=== PATIENT | female | born 1935 | race Caucasian/White ===

== ENCOUNTER 2016-10-04 03:57 | Inpatient (IN) | payer MEDICARE, OTHER ==
--- NOTE | ~2016-10-04 | HP ---
History And Physical [facility] [id number] [place]. [address] NAME: MOISÉS BROWN : 35 STATUS : ADM IN PAT#: [id number] AGE: 80 ADM/REG DATE : 10/04/16 MR#: [id number] REPORT SERV DATE: 10/04/16 DICTATED BY: BLAINE WILSON DATE: 10/04/16 REPORT STATUS : Draft TRANSCRIBED BY: MODL DATE: 10/04/16 DATE OF ADMISSION: 10/04/2016 REASON FOR ADMISSION: Acute hypoxemic respiratory failure, status post V-tach arrest in the emergency department. HPI: Mrs. Brown is an 80-year-old lady with underlying diabetes, COPD, hypertension, and atrial fibrillation who presented to the emergency department via air transport. She was already on pacer and dopamine infusion per EMS upon her arrival. [facility] had actually intubated her prior to arrival, and on arrival to our facility at around 0251 hours this morning, she coded a short time later (see detailed code record). She initially arrested at 0257 hours. ACLS was initiated. She received CPR, epinephrine x2 amps, and bicarbonate, and ultimately weak femoral pulse was palpated at 0303 hours. At 0304 hours, she developed ventricular tachycardia and was defibrillated with 200 joules and loaded with amiodarone. She underwent two subsequent defibrillations at 300 and 360 joules and ultimately return of spontaneous circulation was obtained at 0308 hours. She also received an amp of lidocaine. She was found to be quite hyperglycemic with glucose of greater than 700, and she received a total of 16 units of regular insulin, an amp of calcium gluconate, and 2 amps of bicarbonate. She was started on insulin infusion as well as the vasopressors as described above. A central line was inserted into the left subclavian vein by Dr. Gonzales and Armenta catheter was inserted. She has received 1 L total of fluid during her first couple of hours in the emergency department, and we are now in the process of moving her to the intensive care unit for ongoing care. Additional history is very limited as her family is still making their way to the hospital. PAST MEDICAL HISTORY: Largely taken from extrapolation from her home medication list includes COPD requiring chronic prednisone at 10 mg daily, GERD requiring PPI, congestive heart failure, hypertension, dyslipidemia, iron deficiency, diabetes requiring insulin, hypothyroidism requiring Synthroid, seasonal allergies requiring Singulair, and presumed atrial fibrillation. She is on both digoxin and diltiazem. SURGICAL HISTORY: Unknown. SOCIAL HISTORY: Unknown. FAMILY HISTORY: Unknown. ALLERGIES: UNKNOWN. MEDICATIONS: Albuterol, allopurinol, aspirin, calcium, digoxin, diltiazem ER, iron supplements, Advair, Lasix, Amaryl, hydralazine, hydrocodone p.r.n., Humalog 75/25, Synthroid, lisinopril, metformin, montelukast, fish oil, Protonix, potassium supplements, prednisone chronically, and Phenergan. Please see the detailed MAR prepared by the pharmacist in the emergency department for additional information on doses and frequencies of administration. History And Physical [address] [address] NAME: MOISÉS BROWN : 35 STATUS : ADM IN PAT#: [id number] AGE: 80 ADM/REG DATE : 10/04/16 MR#: [id number] REPORT SERV DATE: 10/04/16 DICTATED BY: BLAINE WILSON DATE: 10/04/16 REPORT STATUS : Draft TRANSCRIBED BY: NINOSKA DATE: 10/04/16 ADVANCE DIRECTIVES: Living will unknown. She is full code at this point. PHYSICAL EXAMINATION: GENERAL: The patient is a female, who is elderly and somewhat obese. She is intubated and sedated. HEENT: Head is atraumatic and normocephalic. Pupils are very sluggishly reactive to light. Extraocular movements are unable to be assessed due to sedation. Ears, nose, and mouth are unremarkable. She has dry oral mucosa, and an oral endotracheal tube and orogastric tube in place. NECK: She has redundant soft tissue about the neck. No palpable adenopathy. CHEST: With symmetric rise. She has a subclavian triple-lumen which is sutured in by the clip on the left. She has diminished lung sounds at bilateral bases. HEART: S1, S2. Irregular regular. ABDOMEN: Obese, soft, nontender with some protuberance and mild tympany to percussion. : A Armenta catheter is indwelling and draining minimal amount of translucent yellow urine. EXTREMITIES: Without clubbing or cyanosis. She is cool to touch. She has mild pitting edema. LYMPHATIC: Exam is unremarkable. Otherwise, she has no palpable adenopathy. NEUROLOGIC: Limited. She does withdraw to pain. PSYCHIATRIC: Exam unable to perform. LABORATORY STUDIES: Personal review of diagnostic workup completed in emergency department this evening. Metabolic profile shows hyponatremia, hypochloremia of 130 and 91 with hyperkalemia at 7.7 initially, bicarb was 19 on BMP with the BUN and creatinine being 34 and 2.57 with an unclear baseline. She is markedly hyperglycemic at 881. Magnesium is 2 and troponin is 0.03. She has leukocytosis at 26.3, hemoglobin is 10.1, hematocrit is 33.2 with normochromic normocytic red cell parameters. Her RDW is 14.5, platelet count is adequate at 240. She has 5% bands and a lymphocyte predominant differential. INR is 1.1. Followup potassium is 6.4 after treatment with bicarb and 1 L of fluid. An ABG shows pH of 7.147, CO2 of 68, O2 of less than 60(this is a venous sample), and base excess -6.0 with a calculated bicarb of 22.8 and an oxygen saturation of 77.0. Again, this is a venous sample. Urinalysis shows glucosuria with mild proteinuria, negative leukocyte esterase, negative nitrite, 2 white blood cells, and 43 hyaline casts. Urine drug screen is positive for opiates alone. Lactate level is 11.6. A followup ABG shows mild improvement in the acidosis, pH 7.21, CO2 is 51, O2 is 474, calculated bicarb at 19.7 on 100% FiO2. Chest x- ray shows subclavian line with tip terminating at the insertion of the subclavian vein on the left to the superior vena cava. Endotracheal tube is low lying about 1 cm above the concepción. She has bilateral hyperinflated lung wang with no focal consolidations or pleural effusions. There is no pneumothorax on my assessment. Several cardiac leads traversing the anterior chest. A KUB is pending. An EKG shows wide-complex ventricular tachycardia. IMPRESSION: 1. Acute hypoxemic respiratory failure. 2. Ventricular tachycardia cardiac arrest, status post successful defibrillation and ACLS with down time from 0257 to 0307 according to ER records. 3. Metabolic acidosis. History And Physical [address] [place]. [address] NAME: MOISÉS BROWN : 35 STATUS : ADM IN PAT#: [id number] AGE: 80 ADM/REG DATE : 10/04/16 MR#: [id number] REPORT SERV DATE: 10/04/16 DICTATED BY: BLAINE WILSON DATE: 10/04/16 REPORT STATUS : Draft TRANSCRIBED BY: MODL DATE: 10/04/16 4. Insulin-dependent diabetes with evidence of diabetic ketoacidosis versus hyperosmolar hyperglycemic syndrome. 5. Marked hyperkalemia likely leading to the ventricular arrhythmia noted above. 6. Marked leukocytosis with mild bandemia and neutrophil predominant differential. 7. Acute kidney injury likely superimposed on some degree of chronic kidney disease. 8. Normochromic normocytic anemia. 9. History of chronic obstructive pulmonary disease, requiring chronic prednisone. 10.Acute kidney injury, likely acute tubular necrosis (43 hyaline casts on UA). 11.Lactic acidosis and respiratory acidosis. 12.Past medical history including chronic obstructive pulmonary disease, gastroesophageal reflux disease, chronic atrial fibrillation, iron deficiency, diabetes requiring insulin, hypertension, seasonal allergies. PLAN: We will move Ms. Brown up to the Intensive Care Unit for ongoing management. She is already on mechanical ventilation which is being titrated on an as-needed basis. We will continue to try to titrate vasopressors and ask Cardiology to weigh in on additional management in light of her advanced age. ER MD did defer cooling protocol. We did discuss the case informally by telephone with Dr. Duque from Nephrology who was in concurrence with ongoing administration of volume and monitoring urine output with serial labs and consideration of dialysis on an as-needed basis. We will cover her with broad-spectrum antibiotics, obtain full set of cultures, and a procalcitonin level. With the goal of deescalation of antibiotic regimen fairly quickly once more data is available and her clinical picture is more clear, we will screen for iron deficiency in light of her chronic anemia and check a digoxin level as she does not appear to have renal clearance and this maybe contributing to her presentation tonight. She is already loaded with amiodarone. We will continue the insulin drip and titrate as appropriate. SCDs for DVT prophylaxis. Protonix for stress ulcer prophylaxis. She is full code. Daughter was updated at bedside, and I did discuss the case with both Dr. Gonzales and Dr. Duque from Nephrology. We will continue to make adjustments to her regimen as clinically warranted. Approximately 74 minutes of critical care time were spent at the bedside assessing and stabilizing Ms. Brown this evening as well as reviewing her medical record and updating her family. Please see handwritten progress notes for additional details. KINSEY/NINOSKA Blaine Wilson MD / [id number] CC: MD ROCIO Palomino
--- NOTE | ~2016-10-04 | PREOPHP ---
PreOp History and Physical [facility] [address] [place]. [address] NAME: MOISÉS BROWN : 35 STATUS : ADM IN PAT#: [id number] AGE: 80 ADM/REG DATE : 10/04/16 MR#: [id number] REPORT SERV DATE: 10/04/16 DICTATED BY: SARKIS RAMIREZ DATE: 10/04/16 REPORT STATUS : Draft TRANSCRIBED BY: NINOSKA DATE: 10/04/16 TIME: 10:50 a.m. REASON FOR CONSULTATION: Acute kidney injury with severe hyperkalemia in the setting of DKA with profound hyperglycemia, status post cardiac arrest and respiratory failure, and currently intubated. ASSESSMENT: Acute profound hyperkalemia. Initial potassium of 7.7 in the setting of diabetic ketoacidosis and profound hyperglycemia with acute kidney injury in the setting of a creatinine initially 2.5, now down to 2.3 with nonoliguric injury, with almost 2000 mL of urine output. She likely has a component of ATN in the setting of cardiac arrest. She required CPR and ACLS protocol, but currently is nonoliguric. PLAN: 1. Serial labs. Continue the insulin drip indefinitely until the potassium is corrected. 2. Switch to normal saline and maintain hydration and allow for this potassium loss. 3. Obtain old records to see if there is any history of previous chronic kidney disease. At the present time, there is no immediate indication for dialysis at this time. HISTORY OF PRESENT ILLNESS: History is obtained from the records available. The patient is currently intubated. She is an 80-year-old female with a history of diabetes and COPD, with hypertension and chronic atrial fibrillation, who was brought in by [facility] from an outside facility. Apparently, she had arrested at about 2:57 a.m. this morning. On airway, she received CPR, epinephrine, bicarbonate and then subsequently, had a ventricular tachycardia arrest and was defibrillated and then, noted to be profoundly hyperglycemic with severe metabolic acidosis with the profound hyperkalemia as noted. She is currently sedated and intubated. PAST MEDICAL HISTORY: Obtained from records available includes COPD; gastroesophageal reflux disease; CHF; hypertension; dyslipidemia; iron-deficiency anemia; diabetes, requiring insulin; hypothyroidism and atrial fibrillation. SURGICAL HISTORY: None known. SOCIAL HISTORY: We talked to the daughter. No history of smoking and no history of alcohol or medication or street drug usage. FAMILY HISTORY: Negative for end-stage renal failure in the parents. ALLERGIES: NO KNOWN ALLERGIES AT THIS TIME DOCUMENTED. MEDICATIONS: Albuterol, allopurinol, Advair, Lasix, Amaryl, hydralazine, hydrocodone, Humalog, Synthroid, lisinopril, metformin, fish oil, Protonix, prednisone, and Phenergan. REVIEW OF SYSTEMS: As per the HPI. PreOp History and Physical [address] [address] NAME: MOISÉS BROWN : 35 STATUS : ADM IN [facility]#: [id number] AGE: 80 ADM/REG DATE : 10/04/16 MR#: [id number] REPORT SERV DATE: 10/04/16 DICTATED BY: SARKIS RAMIREZ DATE: 10/04/16 REPORT STATUS : Draft TRANSCRIBED BY: NINOSKA DATE: 10/04/16 PHYSICAL EXAMINATION: GENERAL: She is sedated and intubated. She is off dopamine. VITAL SIGNS: Systolic blood pressures in the 90s and sinus tach. HEENT: Pupils are reacting to light. She is pale, but not jaundiced. Oral mucosa is dry. She has an ET tube. LUNGS: Air entry is equal bilaterally. CHEST: Clear to percussion and auscultation. [place] beats not displaced. S1, S2. No rub. ABDOMEN: Distended. It is firm. It is soft. There are no bowel sounds at this time, but there is no guarding or rebound. There is no hepatosplenomegaly described and no renal angle tenderness. : She has an indwelling Armenta catheter with clear yellow urine. There is no hematuria. EXTREMITIES: She has no peripheral edema. SKIN: There is no loss of skin turgor. No rash. MUSCULOSKELETAL: Muscle bulk and tone appropriate for age. There is no acute arthritic findings noted. LABORATORY DATA: Sodium 132, potassium 6.2, chloride 94, CO2 of 25, BUN 32, creatinine 2.38, calcium is 8.3, albumin is 3.1. Alkaline phos is 162, ALT is 340, AST is 541. Her ferritin was 1281. Her TSH is 2.7. Digoxin level was 2.9. Hemoglobin is 11.4, hematocrit 34.4, white count is 34.1, platelet count is 311,000. Her urinalysis done here today shows proteinuria suggestive of chronic kidney disease and glycosuria. There was no pyuria or hematuria. Her chest x-ray shows mild colonic ileus. NG tube in good position. Her chest x-ray shows left subclavian central line. Otherwise, no evidence of any increased pulmonary vascular congestion. MG/MODL Sarkis Ramirez M.D. / [id number] CC: MD Marlen Palomino Vickie
--- NOTE | ~2016-10-04 | TEE ---
Transesophageal Echocardiogram [facility] [address] [place]. [address] NAME: MOISÉS BROWN : 35 STATUS : ADM IN PAT#: [id number] AGE: 80 ADM/REG DATE : 10/04/16 MR#: [id number] REPORT SERV DATE: 10/08/16 DICTATED BY: JOSE FRAUSTO DATE: 10/08/16 REPORT STATUS : Draft TRANSCRIBED BY: MODL DATE: 10/08/16 INDICATION: Abnormal echo. PROCEDURE: After questions were answered and consents were signed, the patient was sedated with propofol per Anesthesia. The probe was placed in the midesophagus and images were obtained without difficulty. At the conclusion of the procedure, the probe was withdrawn and the patient is recovering in the short-stay unit. 2D INTERPRETATION: The left ventricular function is normal with no focal wall motion abnormality. Left atrium is enlarged. No thrombus is noted in the left atrium nor the left atrial appendage. The mitral valve leaflets are mildly thickened. There is a large approximately 2.5 cm rounded density with calcification noted in the posterior annulus and appears to be adjacent to P2 and probable P1 segments. It is sessile without independent motion and has a morphology consistent with caseous calcification of the mitral annulus or CCMA. The interatrial septum is intact. The aortic valve was trileaflet mildly sclerotic and opens adequately. The right atrium is normal. Tricuspid valve grossly normal. Right ventricle grossly normal. COLOR FLOW: Mild mitral regurgitation with mild to moderate tricuspid regurgitation and no significant aortic insufficiency. DOPPLER: Doppler flow velocities through the mitral valve are increased with a mean gradient of 10 mmHg and a peak gradient of 16 mmHg. CONCLUSION: ABNORMAL ECHOCARDIOGRAM WITH MITRAL ANNULAR MASS CONSISTENT WITH CASEOUS CALCIFICATION OF THE MITRAL ANNULUS, WHICH IS A VARIANT OF MITRAL ANNULAR CALCIFICATION. MODERATE SEVERE ASSOCIATED MITRAL STENOSIS IS NOTED. THIS IS NOT CONSISTENT WITH VEGETATION. WO/MODL Jose Frausto M.D., Ph.D, F.A.C.C. / [id number] CC: ADEOLA SOSA Vickie
--- NOTE | ~2016-10-04 | DS ---
Discharge Summary [facility] [address] [place]. [address] NAME: MOISÉS BROWN : 35 STATUS : DIS IN PAT#: [id number] AGE: 80 ADM/REG DATE : 10/04/16 MR#: [id number] REPORT SERV DATE: 10/11/16 DICTATED BY: DATE: REPORT STATUS : Draft TRANSCRIBED BY: MODL DATE: 10/10/16 ADMISSION DATE: 10/04/2016 DISCHARGE DATE: 10/10/2016 The patient was admitted to the [facility], attending Dr. Loretta Orozco, and discharged from the Hospitalist Service, attending Dr. Girma Barton. CONSULTANTS: Included [facility]-Dr. Ochoa, Nephrology-Dr. Ramirez, Electrophysiology-Dr. Oquendo, and the inpatient asthma educator. DISCHARGE DIAGNOSES: 1. Status post CPR. Status post intubation. Acute hypoxemic respiratory failure in the context of ventricular tachycardia cardiac arrest. 2. Ventricular tachycardia felt secondary to hyperkalemia. 3. Acute kidney injury-multifactorial due to hyperosmolar nonketotic hyperglycemic state and dehydration as well as acute tubular necrosis. 4. Hyperkalemia due to acute kidney injury and supplementation-resolved. 5. Digoxin toxicity-resolved. 6. Atrial fibrillation, paroxysmal, with rapid ventricular response this admission. Cardizem up titrated, restarted on lower dose of digoxin and started on Coumadin for stroke prophylaxis. 7. 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 8. Labile insulin-dependent diabetes mellitus type 2-hemoglobin A1c 10.3 with hypoglycemia on basal insulin. 9. Hypertension. 10.Transaminitis-due to hypotension, resolved. 11.History of hypothyroidism-normal thyroid function tests. 12.History of anemia on oral iron therapy. 13.Right upper extremity cephalic vein thrombosis (superficial). 14.COPD-chronic and stable, without acute exacerbation this admission. 15.Spiculated lung mass, 1.3 cm in the right lung apex with recommendation for repeat CT chest in three months. 16.Generalized weakness-for additional physical rehabilitation. 17.Demand-related cardiac ischemia. IMAGIN. Portable chest x-ray, October 04. CPR in progress. Endotracheal tube above the concepción. Mild central venous congestion. 2. Portable chest x-ray, October 04 status post cardiac arrest. Left subclavian central line in good position with no pneumothorax. 3. KUB, October 04 status post NG tube placement shows good positioning, mild colonic ileus. 4. Transthoracic echocardiogram, October 04 showing normal left ventricular size and systolic function. Estimated ejection fraction 55%. No regional wall motion abnormalities. Mild diastolic dysfunction. Thickening of mitral valve leaflets with large 2.4 cm heterogeneous circular mass seems to be attached to the posterior mitral Discharge Summary [address] [place]. [address] NAME: MOISÉS BROWN : 35 STATUS : DIS IN PAT#: [id number] AGE: 80 ADM/REG DATE : 10/04/16 MR#: [id number] REPORT SERV DATE: 10/11/16 DICTATED BY: DATE: REPORT STATUS : Draft TRANSCRIBED BY: MODL DATE: 10/10/16 valve leaflet. Small mobile echodensity attached to the mass. Findings resembling cardiac tumor, possible myxoma, thrombus or mitral annular calcification cannot be excluded. Moderate obstruction to flow with evidence of moderate mitral valve stenosis. Aortic valve sclerosis. 5. Portable chest x-ray, October 05 shows pulmonary venous congestion. 6. Portable chest x-ray October 06 shows mild volume overload or CHF pattern superimposed on patchy bilateral upper lobe with airspace disease. 7. Portable chest x-ray, October 07 shows pulmonary vascular congestion. 8. JOSE, October 08 demonstrating caseous calcification of the mitral anulus with moderate-to- severe mitral regurgitation. 9. Right upper extremity venous Doppler ultrasound October 08 shows thrombus in the right cephalic vein. No evidence of DVT in the internal jugular vein, axillary vein, brachial vein, or basilic vein. 10.CT venogram of the chest October 09 shows spiculated 1.3 cm nodule along the lateral pleural surface of the right apex. Followup options include PET-CT or followup chest CT in three months. Thrombus in the right cephalic vein, subclavian vein, distal internal jugular vein, SVC remained patent. Atherosclerotic irregularity of the aortic arch, descending thoracic aorta, proximal abdominal aorta without evidence for aneurysm or dissection. Small bilateral posterior pleural effusions with bibasilar atelectasis. No adenopathy. LABORATORY DATA: Digoxin level at admission was 2.9. Thyroid function tests normal. Potassium at admission 6.4. Troponin values between 0.03 and 0.22. B12 601, folate 51, ferritin 1281, percent iron saturation 37, iron binding capacity 307, iron 114. ALT 340 at admission, 75 at discharge. AST 546 at admission, 20 at discharge, creatinine 2.57 at admission, 1.02 at discharge. Procalcitonin 1.14, hemoglobin A1c 10.3. BNP 37. Ammonia 27. Lactate 11.6 at admission, 3.1 on October 04. Cortisol 80. White blood cell count 26.3 at admission, 9.8 at discharge. Hemoglobin values between 9.2 and 10.1. Platelet count normal. Urinalysis with 43 hyaline casts. Rare bacteria. Urine drug screen positive for opiates. Blood cultures x2. No growth. Sputum culture October 05, showed sparse growth of Pantoea agglomerans. BRIEF HISTORY: For full details please see the previously dictated history of present illness by Dr. Loretta Orozco. This is an 80-year-old, white female who presented to the [facility] Emergency Department via air transport, with a transcutaneous pacer and dopamine infusion, and she had been intubated en route to [facility]. Upon arrival to [facility], she experienced a cardiorespiratory arrest and ACLS was initiated. The patient received CPR, epinephrine, bicarbonate. Ultimately, weak femoral pulse was obtained, but then patient's rhythm degraded into ventricular tachycardia and she was defibrillated multiple times, with return of spontaneous circulation. The patient was admitted to the Intensive Care Unit. HOSPITAL COURSE: For full details, please reference the progress notes while the patient was in the Intensive Care Unit, as no interim summary for those dates of service was documented. From review of the records it appears that patient was stably extubated on the October 05, 2016, and transferred out of the Intensive Care Unit on the afternoon of October 06, 2016. The Hospitalist Service assumed her care on October 07, 2016. Again from review of records, it appears that her admitting diagnoses were acute kidney injury, hyperosmolar nonketotic Discharge Summary [place] [id number] [facility] [place]. [address] NAME: MOISÉS BROWN : 35 STATUS : DIS IN [facility]#: [id number] AGE: 80 ADM/REG DATE : 10/04/16 MR#: [id number] REPORT SERV DATE: 10/11/16 DICTATED BY: DATE: REPORT STATUS : Draft TRANSCRIBED BY: MODL DATE: 10/10/16 hyperglycemic state, digoxin toxicity, and hyperkalemia. The reason for her ventricular tachycardia arrest was felt to be hyperkalemia. The patient was seen by both Cardiology and Electrophysiology with recommendation for rate control of atrial fibrillation, but no need for pacemaker or ICD. The patient was also seen by Nephrology, treated with fluids and holding of her nephrotoxic medications as well as digoxin and her creatinine trended to baseline prior to transfer out of the ICU. I assumed care of the patient on October 08, 2016. The patient was complaining of some right upper extremity pain and swelling. She had a JOSE scheduled for that day to further evaluate the possibility of a mitral valve mass which had been seen on transthoracic echocardiogram. She underwent a JOSE that day demonstrating caseous calcification of the mitral anulus with [id number] mitral valve stenosis, but no evidence of myxoma or vegetation. She also went underwent a venous ultrasound of her right upper extremity that day, indicating a cephalic vein thrombus. On October 09, 2016, she was sent for a CT venogram of the chest to better evaluate the cephalic thrombus and to rule out deeper thrombus. The CT of the chest was negative for DVT. The patient had been started on Coumadin the day prior for atrial fibrillation. Following the CT, she developed atrial fibrillation with rapid ventricular response and rates up to 150. She was placed on a Cardizem drip, her oral Cardizem was increased, and she was started back on a low dose of digoxin. She only required a Cardizem drip for 12 hours and was able to be weaned off that the afternoon of October 09, 2016. On October 10, 2016, the patient had heart rates between 80 and 100, with no specific complaints aside from generalized weakness and she reported feeling "better than I have in the days prior." She is being sent to [facility] for additional physical therapy and reconditioning. Several medication adjustments have been made to be outlined below. Specifically, renally metabolized medication doses were adjusted in order to prevent recurrent acute kidney injury or hyperglycemia. The patient received seven days of antibiotics while here in the hospital and Levaquin and Flagyl were discontinued prior to transfer as well. Her blood sugars have been well controlled for the two days prior to transfer, with no episodes of hypoglycemia or hyperglycemia. She is eating well also. A new medicine at the time of transfer is Coumadin which will need to be monitored. Her discharge INR value in is 1.2, and her goal is INR 2- 3. DISCHARGE DISPOSITION: To [facility] for additional physical strengthening prior to return to independent living at home. She has no specific activity restrictions. She should adhere to 1800 calorie diabetic diet. She will need to follow up with the [facility] in [place] in one month regarding atrial fibrillation and anticoagulation. She also needs to follow up with primary care provider, Magdalena Gee within 1 to 2 weeks after discharge from rehab. [facility] patient's PT/INR every 48 hours until INR is at goal 2-3 on 2 consecutive occasions. Discharge Summary [place] [id number] [facility] [place]. [address] NAME: MOISÉS BROWN : 35 STATUS : DIS IN PAT#: [id number] AGE: 80 ADM/REG DATE : 10/04/16 MR#: [id number] REPORT SERV DATE: 10/11/16 DICTATED BY: DATE: REPORT STATUS : Draft TRANSCRIBED BY: NINOSKA DATE: 10/10/16 DISCHARGE MEDICATIONS: Include : 1. Allopurinol 100 mg p.o. daily. 2. Digoxin 125 mcg p.o. daily-dose decreased from 250 mg p.o. daily. 3. Cardizem CD 240 mg p.o. daily-dose increased from 180 p.o. daily. 4. Colace 100 mg p.o. twice a day. 5. NovoLog sliding scale level 2 sub cu q.a.c. and at bedtime. 6. NovoLog 70/30, 10 units subcu q.a.c. t.i.d. 7. Metformin 1000 mg p.o. b.i.d. 8. Synthroid 25 mcg p.o. q.a.c., breakfast. 9. Singulair 10 mg p.o. at bedtime. 10.Fish oil 1200 mg p.o. daily. 11.Protonix 40 mg p.o. daily. 12.Apresoline 25 mg p.o. twice a day. 13.Prednisone 10 mg p.o. daily. 14.Albuterol nebs four times a day as needed. 15.Advair Diskus 500/50 one puff inhaled every 12 hours. 16.Dulcolax 10 mg p.o. daily p.r.n. constipation. 17.MiraLAX one packet p.o. daily p.r.n. constipation. 18.Hydrocodone/acetaminophen 325 p.o. 3 times daily-prescription for 30 tablets was provided. 19.Iron sulfate 325 mg p.o. twice a day. 20.Caltrate 600 mg p.o. daily. 21.Potassium chloride 20 mEq p.o. daily. 22.Lisinopril 5 mg p.o. daily-hold if systolic blood pressure less than or equal to 110. This dose was decreased from 20 mg p.o. twice a day. 23.Lasix 20 mg p.o. daily p.r.n. bilateral lower extremity edema. This dose was decreased from Lasix 40 mg twice a day. 24.Coumadin 5 mg p.o. daily-adjust pending results of PT/INR, to goal 2-3. 25.The patient's aspirin 81 mg p.o. daily was held as she is now on Coumadin. Forty-five minutes was spent in completion of the discharge. LB/NINOSKA Girma Barton M.D. / [id number] CC: Jeanna Morrissey MD [facility]
--- NOTE | ~2016-10-04 | CN ---
Consultation Report [facility] [address] [place]. [address] NAME: MOISÉS BROWN : 35 STATUS : ADM IN PAT#: [id number] AGE: 80 ADM/REG DATE : 10/04/16 MR#: [id number] REPORT SERV DATE: 10/04/16 DICTATED BY: SIMI OCHOA JR. DATE: 10/04/16 REPORT STATUS : Draft TRANSCRIBED BY: MODL DATE: 10/04/16 CARDIOLOGY CONSULTATION DATE OF CONSULTATION: 10/04/2016 HISTORY OF PRESENT ILLNESS: 80-year-old white female with a very little previous history. Apparently, she has never been to [facility] in the past. She was flown in by helicopter early this morning with heart rate in the 20s per EMS. She was on an external pacemaker and on a dopamine drip. She had a ventricular tachycardia arrest in the emergency room with the strip suggesting torsade de pointes. She was defibrillated three times. She received boluses of amiodarone and lidocaine. She remains on a dopamine drip and is relatively bradycardic with latest EKG showing accelerated junctional or a possibly ectopic atrial rhythm with bifascicular block with rhythm strip showing first-degree AV block. Pertinent lab includes a digoxin level of 2.9. BUN and creatinine 34 and 2.6 respectively. Initial potassium of 7.7, falling to 6.4 with treatment. Lactate is increased to 11.6. Initial troponin 0.03. BNP normal at 37. White count 26,300 and hemoglobin 10.1 with normocytic indices. Family is not around at this time. Judging from her home medications and the presence of digoxin and diltiazem, it is likely that she has had paroxysmal atrial fibrillation in the past. She also is diabetic and on insulin and lisinopril and at least has hypertensive heart disease, if not coronary disease, as well. ALLERGIES: UNABLE TO OBTAIN ALLERGY HISTORY. PAST MEDICAL HISTORY: Unable to obtain. No previous records. Family not in waiting room. PHYSICAL EXAMINATION: GENERAL: Elderly, intubated female, sedated. VITAL SIGNS: Blood pressure 140/60, pulse is 77 and regular, respirations 18 (ventilator). HEENT: No xanthelasma. NECK: No JVD at 30 degrees. No thyromegaly. No carotid bruit. LUNGS: Clear to auscultation and percussion. COR: No thrills, heaves. Normal S1, S2. No gallop. No rub. No murmur. ABD: Soft, nontender. No hepatosplenomegaly. No mass. EXT: Without edema or pulse deficit. MS: Back without spine or costovertebral angle tenderness. NEURO: Symmetric findings. DISCUSSION: Initially bradycardic with baseline conduction system disease with a ventricular tachycardia arrest in the emergency room. Available strips suggest a possibility of torsade de pointes. She is currently on a dopamine drip and was bradycardic earlier this morning. She is no longer on amiodarone or lidocaine. Plan to obtain EP consult and initiate a lidocaine drip in hopes of not having any bradycardia side effects with amiodarone. Consultation Report [address] [place]. [address] NAME: MOISÉS BROWN : 35 STATUS : ADM IN [facility]#: [id number] AGE: 80 ADM/REG DATE : 10/04/16 MR#: [id number] REPORT SERV DATE: 10/04/16 DICTATED BY: SIMI OCHOA JR. DATE: 10/04/16 REPORT STATUS : Draft TRANSCRIBED BY: NINOSKA DATE: 10/04/16 Underlying conduction system disease. May require pacemaker, ICD, etc. Rule out CA. Echocardiogram today. Hopefully, we will be able to obtain a better past medical history at some point. Thank you for this consultation. KINSEY/NINOSKA Simi Ochoa Jr., M.D. / [id number] CC: MD Marlen Palomino Vickie
[2016-10-04 03:34] LABS: HEMATOCRIT 33.2 % (36.0-48.0); HEMOGLOBIN 10.1 g/dL (12.0-16.0); MEAN CORPUS HGB CONC 30.4 g/dL (32.0-36.0); MEAN CORPUSCULAR HEMOGLOB 27.8 pg (26.0-34.0); MEAN CORPUSCULAR VOLUME 91.5 fL (80-100); MEAN PLATELET VOLUME 10.6 fL (9.2-13.0); NUCLEATED RED BLOOD CELLS 0.1 /100WBC (0-0); PLATELET COUNT 240 10/3/uL (150-400); RBC DISTRIBUTION WIDTH 14.5 % (12.0-16.0); RED CELL COUNT 3.63 10/6/uL (4.0-5.6)
[2016-10-04 03:39] LABS: ER CBC TAT 0 Hrs 13 Mins; INTERNATIONAL NORMAL RATI 1.1 UNITS (-); PARTIAL THROMBO TIME 28.5 SEC (22.5-37.2); PROTIME (NOT ORD) 14.3 SEC (12.0-14.5); WHITE BLOOD CELLS 26.3 10/3/uL (4.5-10.5)
[2016-10-04 03:40] LABS: MANUAL DIFF YES %
[2016-10-04 03:51] LABS: BUN (BLOOD UREA NITROGEN) 34 MG/DL (6-23); CALCIUM, SERUM 8.3 MG/DL (8.5-10.4); CHEST PAIN PROFILE TAT -1 Hrs 6 Mins; CHLORIDE, SERUM 91 MMOL/L (96-112); CO2 (CARBON DIOXIDE) 19 MMOL/L (24-34); CREATININE 2.57 MG/DL (0.55-1.02); GFR AFRICAN AMERICAN 20 ML/MIN (>=60); GFR NON AFRICAN AMERICAN 17 ML/MIN (>=60); SODIUM, SERUM 130 MMOL/L (135-148); TROPONIN I 0.03 NG/ML (<0.05)
[2016-10-04 03:55] LABS: GLUCOSE, SERUM 881 MG/DL (60-99); POTASSIUM, SERUM 7.7 MMOL/L (3.5-5.3)
[~2016-10-04 03:57] MED LIST: ADVAIR INH; ALBUTEROL0.083 % INH; AMARYL4 PO; APRES25 PO; ASAB PO; CALTRA600D PO; CARTIA XT180 MG/24 PO; FERROUS SULF325 M1 PO; FISH OIL1200 MG PO; GLUCOPHAGE1000 MG PO; HUMALOGMIX SC; KDUR10 PO; L40 PO; LAN25 PO; NORCO1 TAB PO; P10 PO; PR25 PO; PRIN20 PO; PROTONIX PO; SINGULAIR1 PO; SYN.025B PO; Z100 PO
[2016-10-04 04:08] LABS: BAND NEUTROPHILS 5 %; IMMATURE GRANS ABSOLUTE (CALC) 0.79 10/3/uL (0.0-0.11); LYMPHOCYTES ABSOLUTE (CALC) 2.37 10/3/uL (0.67-4.30); MONOCYTES 1 %; MONOCYTES ABSOLUTE (CALC) 0.26 10/3/uL (0.21-1.20); MYELOCYTES 3 %; NEUTROPHILS ABSOLUTE (CALC) 22.88 10/3/uL (2.02-8.40); TOTAL NUCLEATED CELLS 100
[2016-10-04 04:09] LABS: ER DIFF TAT 0 Hrs 43 Mins; LYMPHOCYTES 13 %; PLATELET ESTIMATE ADQ (ADEQUATE); RBC MORPHOLOGY NORM (NORMAL); SEGMENTED NEUTROPHIL (0) 78 %
[2016-10-04 04:27] LABS: ASCORBIC ACID (UR NOT ORDER) NEG (NEG); BILIRUBIN, URINE NEGATIVE (NEG); ER URINALYSIS TAT 0 Hrs 00 Mins; KETONE, URINE NEGATIVE (NEG); LEUKOCYTE ESTERASE(NOT OR NEG (NEG); NITRITE (URINE) NEG (NEG); WBC (NOT ORDERED) (RFLEX) 2 (0-5)
[2016-10-04 04:49] LABS: LACTATE 11.6 MMOL/L (0.3-2.4)
[2016-10-04 04:54] LABS: AMPHETAMINES (NOT ORD) NEG (NEG); BARBITURATES (NOT ORDERED NEG (NEG); BENZODIAZEPINES (NOT ORD) NEG (NEG); CANNABINOIDS (THC) NEG (NEG); COCAINE (NOT ORDERED) NEG (NEG); OPIATES POS (NEG); PHENCYCLIDINE(PCP) NEG (NEG); TRICYCLICS NEG (NEG)
[2016-10-04 04:58] LABS: BE (BASE EXCESS) -8.1 MEQ/L (0 +/- 2.5); CARBOXYHEMOGLOBIN 0.5 % (0-3); HCO3 (ACTUAL BICARBONATE) 19.7 MEQ/L (23-27); HEMOBLOGIN CONTENT 10.9 G/DL (12-16); INSTRUMENT SERIAL # 8087; METHEMOGLOBIN 0.3 % (0-3); MODE CMV; O2 CONTENT 16.5 VOL% (18-24); OPERATOR ID 17589; PCO2 (CO2 TENSION) 51 MMHG (35-45); PO2 (O2 TENSION) 474 MMHG (79-93); SAMPLE Arterial; TIDAL VOLUME 400 ML; pH 7.21 (7.37-7.43)
[2016-10-04 07:15] LABS: DIGOXIN 2.9 NG/ML (0.8-2.0)
[2016-10-04 07:49] LABS: ALLENS TEST Pos; BE (BASE EXCESS) -1.3 MEQ/L (0 +/- 2.5); CARBOXYHEMOGLOBIN 0.3 % (0-3); HCO3 (ACTUAL BICARBONATE) 27.4 MEQ/L (23-27); HEMOBLOGIN CONTENT 12.7 G/DL (12-16); INSTRUMENT SERIAL # 35151; METHEMOGLOBIN 0.8 % (0-3); MODE CMV; O2 CONTENT 17.3 VOL% (18-24); OPERATOR ID 35188; PCO2 (CO2 TENSION) 65 MMHG (35-45); PO2 (O2 TENSION) 109 MMHG (79-93); SAMPLE Arterial; TIDAL VOLUME 400 ML; pH 7.24 (7.37-7.43)
[2016-10-04 08:39] LABS: LACTATE 3.6 MMOL/L (0.3-2.4)
[2016-10-04 09:11] LABS: % IRON SAT 37 % (20-50); FERRITIN 1281 NG/ML (8-252); FOLATE 51.1 NG/ML (>5.2); FREE T4 1.47 NG/DL (0.76-1.46); IRON BINDING CAPACITY 307 MCG/DL (225-410); IRON, SERUM 114 MCG/DL (35-150)
[2016-10-04 10:05] LABS: A/G RATIO 0.8 (0.7-1.9); ALBUMIN 3.1 G/DL (3.5-5.0); ALKALINE PHOSPHATASE 162 U/L (45-117); BUN (BLOOD UREA NITROGEN) 32 MG/DL (6-23); CALCIUM, SERUM 8.3 MG/DL (8.5-10.4); CHLORIDE, SERUM 94 MMOL/L (96-112); GFR AFRICAN AMERICAN 23 ML/MIN (>=60); GFR NON AFRICAN AMERICAN 19 ML/MIN (>=60); GLOBULIN 3.8 G/DL (2.5-4.1); SGOT(AST) 541 U/L (5-40); SGPT(ALT) 340 U/L (5-65); SODIUM, SERUM 132 MMOL/L (135-148); TOTAL BILIRUBIN 0.6 MG/DL (0-1.2); TOTAL PROTEIN 6.9 G/DL (6.0-8.5)
[2016-10-04 10:06] LABS: CO2 (CARBON DIOXIDE) 25 MMOL/L (24-34); GLUCOSE, SERUM 470 MG/DL (60-99); POTASSIUM, SERUM 6.2 MMOL/L (3.5-5.3)
[2016-10-04 10:24] LABS: HEMATOCRIT 34.4 % (36.0-48.0); HEMOGLOBIN 11.4 g/dL (12.0-16.0); MEAN CORPUSCULAR HEMOGLOB 28.6 pg (26.0-34.0); MEAN PLATELET VOLUME 10.8 fL (9.2-13.0); PLATELET COUNT 311 10/3/uL (150-400); RBC DISTRIBUTION WIDTH 14.1 % (12.0-16.0); RED CELL COUNT 3.99 10/6/uL (4.0-5.6)
[2016-10-04 10:25] LABS: MEAN CORPUS HGB CONC 33.1 g/dL (32.0-36.0); MEAN CORPUSCULAR VOLUME 86.2 fL (80-100); WHITE BLOOD CELLS 34.1 10/3/uL (4.5-10.5)
[2016-10-04 10:26] LABS: MANUAL DIFF YES %
[2016-10-04 10:39] LABS: PROCALCITONIN 0.39 ng/mL (<0.5)
[2016-10-04 10:41] LABS: A/G RATIO 0.8 (0.7-1.9); ALBUMIN 3.1 G/DL (3.5-5.0); ALKALINE PHOSPHATASE 158 U/L (45-117); BUN (BLOOD UREA NITROGEN) 32 MG/DL (6-23); CALCIUM, SERUM 8.4 MG/DL (8.5-10.4); CHLORIDE, SERUM 94 MMOL/L (96-112); CREATININE 2.26 MG/DL (0.55-1.02); GFR AFRICAN AMERICAN 23 ML/MIN (>=60); GFR NON AFRICAN AMERICAN 20 ML/MIN (>=60); GLOBULIN 3.8 G/DL (2.5-4.1); SGOT(AST) 546 U/L (5-40); SGPT(ALT) 340 U/L (5-65); SODIUM, SERUM 132 MMOL/L (135-148); TOTAL BILIRUBIN 0.6 MG/DL (0-1.2); TOTAL PROTEIN 6.9 G/DL (6.0-8.5)
[2016-10-04 10:44] LABS: CO2 (CARBON DIOXIDE) 28 MMOL/L (24-34); GLUCOSE, SERUM 480 MG/DL (60-99)
[2016-10-04 10:47] LABS: BAND NEUTROPHILS 9 %; LYMPHOCYTES 5 %; LYMPHOCYTES ABSOLUTE (CALC) 1.71 10/3/uL (0.67-4.30); MONOCYTES 10 %; MONOCYTES ABSOLUTE (CALC) 3.41 10/3/uL (0.21-1.20); NEUTROPHILS ABSOLUTE (CALC) 28.99 10/3/uL (2.02-8.40); PLATELET ESTIMATE ADQ (ADEQUATE); RBC MORPHOLOGY NORM (NORMAL); SEGMENTED NEUTROPHIL (0) 76 %; TOTAL NUCLEATED CELLS 100
[2016-10-04 12:26] LABS: CPK 75 U/L (0-200)
[2016-10-04 12:28] LABS: TROPONIN I 0.17 NG/ML (<0.05)
[2016-10-04 13:00] LABS: GLYCOHEMOGLOBIN (HbA1c) 10.3 % (4.7-6.1)
[2016-10-04 13:54] LABS: ALBUMIN 2.7 G/DL (3.5-5.0); BUN (BLOOD UREA NITROGEN) 31 MG/DL (6-23); CALCIUM, SERUM 8.1 MG/DL (8.5-10.4); CHLORIDE, SERUM 101 MMOL/L (96-112); CREATININE 2.09 MG/DL (0.55-1.02); GFR AFRICAN AMERICAN 25 ML/MIN (>=60); GFR NON AFRICAN AMERICAN 22 ML/MIN (>=60); PHOSPHORUS, SERUM 2.6 MG/DL (2.5-4.5); SODIUM, SERUM 135 MMOL/L (135-148)
[2016-10-04 13:56] LABS: CO2 (CARBON DIOXIDE) 32 MMOL/L (24-34); GLUCOSE, SERUM 242 MG/DL (60-99); POTASSIUM, SERUM 6.2 MMOL/L (3.5-5.3)
[2016-10-04 19:19] LABS: BUN (BLOOD UREA NITROGEN) 30 MG/DL (6-23); CALCIUM, SERUM 7.9 MG/DL (8.5-10.4); CHLORIDE, SERUM 102 MMOL/L (96-112); CO2 (CARBON DIOXIDE) 32 MMOL/L (24-34); CPK 57 U/L (0-200); CREATININE 2.17 MG/DL (0.55-1.02); GFR AFRICAN AMERICAN 24 ML/MIN (>=60); GFR NON AFRICAN AMERICAN 21 ML/MIN (>=60); SODIUM, SERUM 136 MMOL/L (135-148)
[2016-10-04 19:20] LABS: CK-MB 2.1 NG/ML; GLUCOSE, SERUM 185 MG/DL (60-99); POTASSIUM, SERUM 6.5 MMOL/L (3.5-5.3); TROPONIN I 0.26 NG/ML (<0.05)
[2016-10-04 19:38] LABS: ALLENS TEST Pos; BE (BASE EXCESS) 2.5 MEQ/L (0 +/- 2.5); CARBOXYHEMOGLOBIN 0.2 % (0-3); HCO3 (ACTUAL BICARBONATE) 27.6 MEQ/L (23-27); HEMOBLOGIN CONTENT 10.6 G/DL (12-16); INSTRUMENT SERIAL # 35151; METHEMOGLOBIN 0.9 % (0-3); MODE CMV; O2 CONTENT 14.4 VOL% (18-24); OPERATOR ID 13861; PCO2 (CO2 TENSION) 45 MMHG (35-45); PO2 (O2 TENSION) 96 MMHG (79-93); SAMPLE Arterial; TIDAL VOLUME 400 ML; pH 7.41 (7.37-7.43)
[2016-10-04 22:33] LABS: BUN (BLOOD UREA NITROGEN) 29 MG/DL (6-23); CALCIUM, SERUM 7.8 MG/DL (8.5-10.4); CHLORIDE, SERUM 102 MMOL/L (96-112); CO2 (CARBON DIOXIDE) 29 MMOL/L (24-34); CREATININE 2.16 MG/DL (0.55-1.02); GFR AFRICAN AMERICAN 24 ML/MIN (>=60); GFR NON AFRICAN AMERICAN 21 ML/MIN (>=60); GLUCOSE, SERUM 186 MG/DL (60-99); POTASSIUM, SERUM 5.3 MMOL/L (3.5-5.3); SODIUM, SERUM 139 MMOL/L (135-148)
[2016-10-05 03:35] LABS: BASOPHILS 0 %; BASOPHILS ABSOLUTE 0.01 10/3/uL (0.0-0.16); EOSINOPHILS 0 %; HEMATOCRIT 29.8 % (36.0-48.0); HEMOGLOBIN 9.9 g/dL (12.0-16.0); IMMATURE GRANULOCYTES 0.5 %; LYMPHOCYTES 6.8 %; LYMPHOCYTES ABSOLUTE 1.42 10/3/uL (0.67-4.30); MANUAL DIFF NO %; MEAN CORPUS HGB CONC 33.2 g/dL (32.0-36.0); MEAN CORPUSCULAR HEMOGLOB 28.4 pg (26.0-34.0); MEAN CORPUSCULAR VOLUME 85.6 fL (80-100); MEAN PLATELET VOLUME 10.4 fL (9.2-13.0); MONOCYTES 7.6 %; MONOCYTES ABSOLUTE 1.59 10/3/uL (0.21-1.20); NEUTROPHILS 85.1 %; PLATELET COUNT 223 10/3/uL (150-400); RBC DISTRIBUTION WIDTH 14.3 % (12.0-16.0); RED CELL COUNT 3.48 10/6/uL (4.0-5.6); WHITE BLOOD CELLS 20.8 10/3/uL (4.5-10.5)
[2016-10-05 03:40] LABS: INTERNATIONAL NORMAL RATI 1.1 UNITS (-); PROTIME (NOT ORD) 14.1 SEC (12.0-14.5)
[2016-10-05 04:01] LABS: ALBUMIN 2.7 G/DL (3.5-5.0); BUN (BLOOD UREA NITROGEN) 26 MG/DL (6-23); CALCIUM, SERUM 8.3 MG/DL (8.5-10.4); CHLORIDE, SERUM 103 MMOL/L (96-112); CO2 (CARBON DIOXIDE) 31 MMOL/L (24-34); CPK 46 U/L (0-200); CREATININE 2.05 MG/DL (0.55-1.02); DIGOXIN 1.3 NG/ML (0.8-2.0); DIRECT BILIRUBIN 0.1 MG/DL (0.0-0.4); GFR AFRICAN AMERICAN 26 ML/MIN (>=60); GFR NON AFRICAN AMERICAN 22 ML/MIN (>=60); INDIRECT BILIRUBIN(NOT ORDER) 0.2 MG/DL (0.1-0.9); SGOT(AST) 183 U/L (5-40); SGPT(ALT) 215 U/L (5-65); SODIUM, SERUM 145 MMOL/L (135-148); TOTAL BILIRUBIN 0.3 MG/DL (0-1.2); TOTAL PROTEIN 5.9 G/DL (6.0-8.5)
[2016-10-05 04:03] LABS: ALKALINE PHOSPHATASE 126 U/L (45-117); CK-MB 1.5 NG/ML; GLUCOSE, SERUM 142 MG/DL (60-99); PHOSPHORUS, SERUM 4.2 MG/DL (2.5-4.5); POTASSIUM, SERUM 3.8 MMOL/L (3.5-5.3)
[2016-10-05 04:04] LABS: TROPONIN I 0.22 NG/ML (<0.05)
[2016-10-05 04:17] LABS: BE (BASE EXCESS) 1.7 MEQ/L (0 +/- 2.5); CARBOXYHEMOGLOBIN 0.3 % (0-3); HCO3 (ACTUAL BICARBONATE) 26.8 MEQ/L (23-27); HEMOBLOGIN CONTENT 12.7 G/DL (12-16); INSTRUMENT SERIAL # 35151; METHEMOGLOBIN 0.9 % (0-3); O2 CONTENT 17.6 VOL% (18-24); PCO2 (CO2 TENSION) 44 MMHG (35-45); PO2 (O2 TENSION) 140 MMHG (79-93); SAMPLE Arterial
[2016-10-05 04:18] LABS: ALLENS TEST Pos; MODE CMV; OPERATOR ID 16503; TIDAL VOLUME 400 ML
[2016-10-05 13:59] LABS: ALBUMIN 2.5 G/DL (3.5-5.0); BUN (BLOOD UREA NITROGEN) 21 MG/DL (6-23); CALCIUM, SERUM 7.6 MG/DL (8.5-10.4); CHLORIDE, SERUM 105 MMOL/L (96-112); CO2 (CARBON DIOXIDE) 31 MMOL/L (24-34); CREATININE 1.58 MG/DL (0.55-1.02); GFR AFRICAN AMERICAN 35 ML/MIN (>=60); GFR NON AFRICAN AMERICAN 31 ML/MIN (>=60); GLUCOSE, SERUM 166 MG/DL (60-99); PHOSPHORUS, SERUM 3.5 MG/DL (2.5-4.5); POTASSIUM, SERUM 3.1 MMOL/L (3.5-5.3); SODIUM, SERUM 146 MMOL/L (135-148)
[2016-10-06 03:46] LABS: BASOPHILS 0.1 %; BASOPHILS ABSOLUTE 0.01 10/3/uL (0.0-0.16); EOSINOPHILS 0 %; HEMATOCRIT 22.9 % (36.0-48.0); HEMOGLOBIN 7.6 g/dL (12.0-16.0); IMMATURE GRANULOCYTES 0.3 %; IMMATURE GRANULOCYTES ABSOLUTE 0.04 10/3/uL (0.0-0.11); LYMPHOCYTES 15.2 %; MANUAL DIFF NO %; MEAN CORPUS HGB CONC 33.2 g/dL (32.0-36.0); MEAN CORPUSCULAR HEMOGLOB 28.6 pg (26.0-34.0); MEAN CORPUSCULAR VOLUME 86.1 fL (80-100); MEAN PLATELET VOLUME 10.2 fL (9.2-13.0); MONOCYTES 8.2 %; MONOCYTES ABSOLUTE 0.98 10/3/uL (0.21-1.20); NEUTROPHILS 76.2 %; NEUTROPHILS ABSOLUTE 9.05 10/3/uL (2.02-8.40); PLATELET COUNT 149 10/3/uL (150-400); RBC DISTRIBUTION WIDTH 14.7 % (12.0-16.0); RED CELL COUNT 2.66 10/6/uL (4.0-5.6); WHITE BLOOD CELLS 11.9 10/3/uL (4.5-10.5)
[2016-10-06 03:51] LABS: INTERNATIONAL NORMAL RATI 1.1 UNITS (-); PROTIME (NOT ORD) 14.1 SEC (12.0-14.5)
[2016-10-06 04:45] LABS: PHOSPHORUS, SERUM 2.6 MG/DL (2.5-4.5)
[2016-10-06 05:20] LABS: PROCALCITONIN 1.14 ng/mL (<0.5)
[2016-10-06 05:33] LABS: ALBUMIN 2.4 G/DL (3.5-5.0); SGOT(AST) 61 U/L (5-40); SGPT(ALT) 130 U/L (5-65); TOTAL BILIRUBIN 0.3 MG/DL (0-1.2); TOTAL PROTEIN 5.2 G/DL (6.0-8.5)
[2016-10-06 05:34] LABS: ALKALINE PHOSPHATASE 102 U/L (45-117); DIRECT BILIRUBIN < 0.1 MG/DL (0.0-0.4); INDIRECT BILIRUBIN(NOT ORDER) 0.2 MG/DL (0.1-0.9)
[2016-10-06 05:48] LABS: BUN (BLOOD UREA NITROGEN) 15 MG/DL (6-23); CALCIUM, SERUM 7.7 MG/DL (8.5-10.4); CHLORIDE, SERUM 102 MMOL/L (96-112); CO2 (CARBON DIOXIDE) 31 MMOL/L (24-34); CREATININE 1.26 MG/DL (0.55-1.02); GFR AFRICAN AMERICAN 47 ML/MIN (>=60); GFR NON AFRICAN AMERICAN 40 ML/MIN (>=60); GLUCOSE, SERUM 132 MG/DL (60-99); POTASSIUM, SERUM 2.7 MMOL/L (3.5-5.3); SODIUM, SERUM 141 MMOL/L (135-148)
[2016-10-07 05:00] LABS: BASOPHILS 0.2 %; BASOPHILS ABSOLUTE 0.02 10/3/uL (0.0-0.16); EOSINOPHILS 0.5 %; EOSINOPHILS ABSOLUTE 0.06 10/3/uL (0.0-0.53); HEMOGLOBIN 8.7 g/dL (12.0-16.0); IMMATURE GRANULOCYTES 0.2 %; IMMATURE GRANULOCYTES ABSOLUTE 0.03 10/3/uL (0.0-0.11); LYMPHOCYTES 9.7 %; LYMPHOCYTES ABSOLUTE 1.25 10/3/uL (0.67-4.30); MEAN CORPUSCULAR HEMOGLOB 28.4 pg (26.0-34.0); MEAN CORPUSCULAR VOLUME 86.3 fL (80-100); MEAN PLATELET VOLUME 9.9 fL (9.2-13.0); MONOCYTES 7.2 %; MONOCYTES ABSOLUTE 0.93 10/3/uL (0.21-1.20); NEUTROPHILS 82.2 %; NEUTROPHILS ABSOLUTE 10.61 10/3/uL (2.02-8.40); PLATELET COUNT 169 10/3/uL (150-400); RBC DISTRIBUTION WIDTH 14.7 % (12.0-16.0); RED CELL COUNT 3.06 10/6/uL (4.0-5.6); WHITE BLOOD CELLS 12.9 10/3/uL (4.5-10.5)
[2016-10-07 05:02] LABS: HEMATOCRIT 26.4 % (36.0-48.0); MANUAL DIFF NO %
[2016-10-07 05:10] LABS: ALBUMIN 2.4 G/DL (3.5-5.0); CHLORIDE, SERUM 110 MMOL/L (96-112); CO2 (CARBON DIOXIDE) 29 MMOL/L (24-34); CREATININE 0.95 MG/DL (0.55-1.02); GFR AFRICAN AMERICAN 66 ML/MIN (>=60); GFR NON AFRICAN AMERICAN 57 ML/MIN (>=60); PHOSPHORUS, SERUM 2.3 MG/DL (2.5-4.5); POTASSIUM, SERUM 4.3 MMOL/L (3.5-5.3); SODIUM, SERUM 144 MMOL/L (135-148)
[2016-10-07 05:13] LABS: BUN (BLOOD UREA NITROGEN) 9 MG/DL (6-23); GLUCOSE, SERUM 86 MG/DL (60-99)
[2016-10-07 05:19] LABS: INTERNATIONAL NORMAL RATI 1.2 UNITS (-); PROTIME (NOT ORD) 14.9 SEC (12.0-14.5)
[2016-10-07 05:23] LABS: CALCIUM, SERUM 8.5 MG/DL (8.5-10.4)
[2016-10-08 04:53] LABS: BASOPHILS 0 %; EOSINOPHILS 0 %; HEMATOCRIT 28.9 % (36.0-48.0); HEMOGLOBIN 9.4 g/dL (12.0-16.0); IMMATURE GRANULOCYTES 0.3 %; IMMATURE GRANULOCYTES ABSOLUTE 0.03 10/3/uL (0.0-0.11); LYMPHOCYTES 3.7 %; LYMPHOCYTES ABSOLUTE 0.36 10/3/uL (0.67-4.30); MEAN CORPUS HGB CONC 32.5 g/dL (32.0-36.0); MEAN CORPUSCULAR HEMOGLOB 28.1 pg (26.0-34.0); MEAN CORPUSCULAR VOLUME 86.5 fL (80-100); MEAN PLATELET VOLUME 10.4 fL (9.2-13.0); MONOCYTES 0.8 %; MONOCYTES ABSOLUTE 0.08 10/3/uL (0.21-1.20); NEUTROPHILS 95.2 %; NEUTROPHILS ABSOLUTE 9.18 10/3/uL (2.02-8.40); PLATELET COUNT 172 10/3/uL (150-400); RBC DISTRIBUTION WIDTH 13.8 % (12.0-16.0); RED CELL COUNT 3.34 10/6/uL (4.0-5.6); WHITE BLOOD CELLS 9.7 10/3/uL (4.5-10.5)
[2016-10-08 04:56] LABS: MANUAL DIFF NO %
[2016-10-08 05:07] LABS: A/G RATIO 0.7 (0.7-1.9); ALBUMIN 2.5 G/DL (3.5-5.0); CHLORIDE, SERUM 104 MMOL/L (96-112); CO2 (CARBON DIOXIDE) 27 MMOL/L (24-34); CREATININE 1.06 MG/DL (0.55-1.02); GFR AFRICAN AMERICAN 57 ML/MIN (>=60); GFR NON AFRICAN AMERICAN 50 ML/MIN (>=60); GLOBULIN 3.5 G/DL (2.5-4.1); POTASSIUM, SERUM 4.1 MMOL/L (3.5-5.3); SGOT(AST) 20 U/L (5-40); SGPT(ALT) 75 U/L (5-65); SODIUM, SERUM 140 MMOL/L (135-148); TOTAL BILIRUBIN 0.5 MG/DL (0-1.2)
[2016-10-08 05:11] LABS: ALKALINE PHOSPHATASE 209 U/L (45-117); BUN (BLOOD UREA NITROGEN) 15 MG/DL (6-23); GLUCOSE, SERUM 349 MG/DL (60-99); PHOSPHORUS, SERUM 3.6 MG/DL (2.5-4.5)
[2016-10-09 06:37] LABS: BASOPHILS 0 %; EOSINOPHILS 0 %; HEMOGLOBIN 9.2 g/dL (12.0-16.0); IMMATURE GRANULOCYTES 0.3 %; IMMATURE GRANULOCYTES ABSOLUTE 0.04 10/3/uL (0.0-0.11); LYMPHOCYTES 8.6 %; LYMPHOCYTES ABSOLUTE 1.03 10/3/uL (0.67-4.30); MANUAL DIFF NO %; MEAN CORPUS HGB CONC 32.9 g/dL (32.0-36.0); MEAN CORPUSCULAR HEMOGLOB 28.4 pg (26.0-34.0); MEAN CORPUSCULAR VOLUME 86.4 fL (80-100); MEAN PLATELET VOLUME 11.1 fL (9.2-13.0); MONOCYTES 8.5 %; MONOCYTES ABSOLUTE 1.01 10/3/uL (0.21-1.20); NEUTROPHILS 82.6 %; NEUTROPHILS ABSOLUTE 9.84 10/3/uL (2.02-8.40); PLATELET COUNT 232 10/3/uL (150-400); RED CELL COUNT 3.24 10/6/uL (4.0-5.6); WHITE BLOOD CELLS 11.9 10/3/uL (4.5-10.5)
[2016-10-09 06:46] LABS: INTERNATIONAL NORMAL RATI 1.2 UNITS (-)
[2016-10-09 06:49] LABS: ALBUMIN 2.3 G/DL (3.5-5.0); BUN (BLOOD UREA NITROGEN) 25 MG/DL (6-23); CALCIUM, SERUM 9.1 MG/DL (8.5-10.4); CHLORIDE, SERUM 104 MMOL/L (96-112); CO2 (CARBON DIOXIDE) 30 MMOL/L (24-34); CREATININE 1.06 MG/DL (0.55-1.02); GFR AFRICAN AMERICAN 57 ML/MIN (>=60); GFR NON AFRICAN AMERICAN 50 ML/MIN (>=60); GLUCOSE, SERUM 209 MG/DL (60-99); PHOSPHORUS, SERUM 2.7 MG/DL (2.5-4.5); POTASSIUM, SERUM 3.2 MMOL/L (3.5-5.3); SODIUM, SERUM 141 MMOL/L (135-148)
[2016-10-10 05:15] LABS: BASOPHILS 0 %; EOSINOPHILS 0 %; HEMATOCRIT 28.2 % (36.0-48.0); HEMOGLOBIN 9.4 g/dL (12.0-16.0); IMMATURE GRANULOCYTES 0.3 %; IMMATURE GRANULOCYTES ABSOLUTE 0.03 10/3/uL (0.0-0.11); LYMPHOCYTES 12.2 %; LYMPHOCYTES ABSOLUTE 1.19 10/3/uL (0.67-4.30); MEAN CORPUS HGB CONC 33.3 g/dL (32.0-36.0); MEAN CORPUSCULAR HEMOGLOB 28.5 pg (26.0-34.0); MEAN CORPUSCULAR VOLUME 85.5 fL (80-100); MEAN PLATELET VOLUME 10.4 fL (9.2-13.0); MONOCYTES 8.8 %; MONOCYTES ABSOLUTE 0.86 10/3/uL (0.21-1.20); NEUTROPHILS 78.7 %; NEUTROPHILS ABSOLUTE 7.71 10/3/uL (2.02-8.40); PLATELET COUNT 255 10/3/uL (150-400); RBC DISTRIBUTION WIDTH 14.5 % (12.0-16.0); WHITE BLOOD CELLS 9.8 10/3/uL (4.5-10.5)
[2016-10-10 05:16] LABS: MANUAL DIFF NO %
[2016-10-10 05:19] LABS: INTERNATIONAL NORMAL RATI 1.2 UNITS (-)
[2016-10-10 05:24] LABS: ALBUMIN 2.6 G/DL (3.5-5.0); BUN (BLOOD UREA NITROGEN) 26 MG/DL (6-23); CALCIUM, SERUM 9.1 MG/DL (8.5-10.4); CHLORIDE, SERUM 105 MMOL/L (96-112); CO2 (CARBON DIOXIDE) 32 MMOL/L (24-34); CREATININE 1.02 MG/DL (0.55-1.02); GFR AFRICAN AMERICAN 60 ML/MIN (>=60); GFR NON AFRICAN AMERICAN 52 ML/MIN (>=60); GLUCOSE, SERUM 238 MG/DL (60-99); PHOSPHORUS, SERUM 2.2 MG/DL (2.5-4.5); POTASSIUM, SERUM 3.7 MMOL/L (3.5-5.3); SODIUM, SERUM 142 MMOL/L (135-148)
== END 2016-10-10 18:27 | DRG 208 ==
LOC: ER 03:57 → CCU 06:22 → 7NO 10-06 15:08
PROVIDERS: Emergency Medicine; Hospitalist; Internal Medicine Cardiovascular Disease; Internal Medicine Critical Care Medicine; Internal Medicine Nephrology
PROC: 5A2204Z Restoration of Cardiac Rhythm, Single (ICD-10-PCS; principal; 2016-10-04)
PROC: 5A1945Z Respiratory Ventilation, 24-96 Consecutive Hours (ICD-10-PCS; 2016-10-04)
PROC: 0BH17EZ Insertion of Endotracheal Airway into Trachea, Via Natural or Artificial Opening (ICD-10-PCS; 2016-10-04)
PROC: 5A2204Z Restoration of Cardiac Rhythm, Single (ICD-10-PCS; 2016-10-04)
PROC: 5A2204Z Restoration of Cardiac Rhythm, Single (ICD-10-PCS; 2016-10-04)
PROC: B246ZZ4 Ultrasonography of Right and Left Heart, Transesophageal (ICD-10-PCS; 2016-10-08)
DX: J96.01 Acute respiratory failure with hypoxia (principal); N17.0 Acute kidney failure with tubular necrosis; I46.2 Cardiac arrest due to underlying cardiac condition; I48.0 Paroxysmal atrial fibrillation; R57.0 Cardiogenic shock; E11.00 Type 2 diabetes mellitus with hyperosmolarity without nonketotic hyperglycemic-hyperosmolar coma (NKHHC); E87.2 Acidosis; R00.1 Bradycardia, unspecified; E86.0 Dehydration; I74.2 Embolism and thrombosis of arteries of the upper extremities; I24.8 Other forms of acute ischemic heart disease; I47.2 Ventricular tachycardia; E87.1 Hypo-osmolality and hyponatremia; I10 Essential (primary) hypertension; D50.9 Iron deficiency anemia, unspecified; J44.9 Chronic obstructive pulmonary disease, unspecified; E87.5 Hyperkalemia; T46.0X5A Adverse effect of cardiac-stimulant glycosides and drugs of similar action, initial encounter; R91.8 Other nonspecific abnormal finding of lung field; I34.0 Nonrheumatic mitral (valve) insufficiency; E11.649 Type 2 diabetes mellitus with hypoglycemia without coma; E87.8 Other disorders of electrolyte and fluid balance, not elsewhere classified; K21.9 Gastro-esophageal reflux disease without esophagitis; Z79.4 Long term (current) use of insulin; Z79.52 Long term (current) use of systemic steroids
CPT/HCPCS: 31720; 36600; 71010; 71260; 74000; 76376; 80048; 80053; 80069; 80076; 80162; 80305; 81001; 82140; 82330; 82533; 82550; 82553; 82565; 82607; 82728; 82746; 82803; 82805; 82947; 82962; 83036; 83540; 83550; 83605; 83735; 83880; 84132; 84145; 84295; 84439; 84443; 84484; 85014; 85025; 85610; 85730; 87040; 87070; 87077; 87186; 87205; 87641; 92950; 93005; 93306; 93312; 93320; 93325; 93971; 94002; 94003; 94640; 94660; 94770; 97162-GP; A9270-GY; C9113; G0463; G8978-CK-GP; G8979-CJ-GP; J0282; J1720; J1940; J2543; J2920; J3010; J3370; J3411; J3475; Q9967